=== PATIENT | male | born 1975 | race African-American/Black ===

== ENCOUNTER 2017-05-23 21:46 | Inpatient (IN) | payer SELFPAY ==
[~2017-05-23] VITALS: Ht 180.3 cm; Wt 120.2 kg
[2017-05-24] MEDS ORDERED: KETOROLAC 30MG/ML VIAL IV STA (00:41)
[2017-05-24] MEDS ORDERED: SODIUM CHLORIDE 0.9% 1,000 ML IV ONE ×3 (00:41→05:02)
[2017-05-24] MEDS ORDERED: ONDANSETRON HCL 4MG/2ML VIAL IV STA ×2 (00:41→02:07)
[2017-05-24 00:52] LABS: HEMATOCRIT. 44.6 % (42.0-52.0); HEMOGLOBIN. 15.3 g/dL (14.0-18.0); MEAN CORPUSCULAR HEMOGLOBIN 30.7 pg (28.0-32.0); MEAN CORPUSCULAR VOLUME 89.5 fL (80.0-94.0); MEAN PLATELET VOLUME 7.7 fl (7.4-10.4); PLATELET 239 x1000/uL (130-400); RED BLOOD CELL COUNT 4.98 mill/uL (4.7-6.1); RED CELL DISTRIBUTION WIDTH 13.7 % (11.6-14.6)
[2017-05-24 00:59] LABS: CHLORIDE 105 mEq/L (98-107)
[2017-05-24 01:00] LABS: INR 1.2; PROTHROMBIN TIME 12.5 sec
[2017-05-24 01:08] LABS: CARBON DIOXIDE 25 mEq/L (21-32)
[2017-05-24] MEDS ORDERED: MORPHINE SULFATE 4 MG/ML CPJ (NOT FOR IM USE) IV STA (02:07)
[2017-05-24 02:21] LABS: CLARITY URINE CLOUDY (CLEAR); COLOR URINE ORANGE (YELLOW); GLUCOSE URINE NEGATIVE (NEGATIVE); KETONES URINE NEGATIVE (NEGATIVE); LEUKOCYTE ESTERASE URINE 2+ (NEGATIVE); NITRITE URINE POSITIVE (NEGATIVE); OCCULT BLOOD URINE 3+ (NEGATIVE); PH URINE 5.5 (4.5-8.0); PROTEIN URINE 2+ (NEGATIVE); SPECIFIC GRAVITY URINE 1.042 (1.005-1.030)
[2017-05-24 02:38] LABS: *AMPHETAMINES SCREEN URINE NEGATIVE (NEGATIVE); *BARBITURATES SCREEN URINE NEGATIVE (NEGATIVE); *BENZODIAZEPINES SCREEN URINE NEGATIVE (NEGATIVE); *COCAINE SCREEN URINE PRESUMTIVE POSITIVE (NEGATIVE); CANNABINOID URINE SCREEN PRESUMTIVE POSITIVE (NEGATIVE); METHADONE URINE SCREEN NEGATIVE (NEGATIVE); OPIATES URINE SCREEN NEGATIVE (NEGATIVE); PHENCYCLIDINE URINE SCREEN NEGATIVE (NEGATIVE)
[2017-05-24] MEDS ORDERED: CEFTRIAXONE 1 G PREMIX 50 ML IV ONE (03:00)
[2017-05-24 03:40] LABS: ATYPICAL LYMPHOCYTES 1
[2017-05-24 03:41] LABS: PLATELET ESTIMATE NORMAL
[2017-05-24] MEDS ORDERED: DOCUSATE SODIUM 100MG CAPSULE PO PRN (06:00)
[2017-05-24] MEDS ORDERED: ENOXAPARIN 40MG/0.4ML SYR SUBCUT SCH (06:00)
[2017-05-24] MEDS ORDERED: DIPHENHYDRAMINE 50MG/ML VIAL IV PRN (06:00)
[2017-05-24] MEDS ORDERED: LORAZEPAM 2MG/ML CPJ IV PRN (06:00)
[2017-05-24] MEDS ORDERED: ONDANSETRON HCL 4MG/2ML VIAL IV PRN (06:00)
[2017-05-24] MEDS ORDERED: MAGNESIUM/ALUMINUM HYDROXIDE/SIMETHICONE 30ML UDC PO PRN (06:00)
[2017-05-24] MEDS ORDERED: ACETAMINOPHEN 325MG TABLET PO PRN (06:00)
[2017-05-24] MEDS ORDERED: IPRATROPIUM/ALBUTEROL 0.5-3(2.5)MG/3ML NEB INH PRN (06:00)
[2017-05-24] MEDS ORDERED: GUAIFENESIN 200MG/10ML SUGAR FREE UDC PO PRN (06:00)
[2017-05-24] MEDS ORDERED: NA PHOS,M-B/NA PHOS,DI-BA ENEMA 118ML PR PRN (06:00)
[2017-05-24] MEDS ORDERED: LEVOFLOXACIN 500MG PREMIX 100 ML IV SCH (06:30)
[2017-05-24 09:00] VITALS: BP_SYST 151; BP_SYST 157; BP_DIAS 98
[2017-05-24] MEDS: PANTOPRAZOLE SODIUM 40 MG/VIAL IV SCH (10:29)
[2017-05-24] MEDS: ENOXAPARIN 30MG/0.3ML SYR SUBCUT SCH ×2 (10:29→21:31)
[2017-05-24] MEDS: LISINOPRIL 20MG TABLET PO SCH ×2 (10:29→21:29)
[2017-05-24 12:00] VITALS: BP 160/105
[2017-05-24] MEDS: KETOROLAC 15MG/ML VIAL IV PRN ×2 (13:53→23:10)
[2017-05-24 16:00] VITALS: BP 168/110
[2017-05-24] MEDS: CLONIDINE 0.1MG TABLET PO PRN (17:20)
[2017-05-24 20:00] VITALS: BP 136/87
[2017-05-24] MEDS ORDERED: ZOLPIDEM TARTRATE 5MG TABLET PO PRN (21:00)
[2017-05-25] VITALS: BP 145/45
[2017-05-25 04:00] VITALS: BP 167/110
[2017-05-25] MEDS ORDERED: CEFTRIAXONE 1 G PREMIX 50 ML IV SCH (04:00)
[2017-05-25 08:00] VITALS: BP 158/104
[2017-05-25] MEDS: LEVOFLOXACIN 500MG PREMIX 100 ML IV SCH (09:28)
[2017-05-25] MEDS: PANTOPRAZOLE SODIUM 40 MG/VIAL IV SCH (09:28)
[2017-05-25] MEDS: LISINOPRIL 20MG TABLET PO SCH ×2 (09:29→20:55)
[2017-05-25] MEDS: ENOXAPARIN 30MG/0.3ML SYR SUBCUT SCH ×2 (09:32→20:47)
[2017-05-25 12:00] VITALS: BP 161/101
[2017-05-25] MEDS: CLONIDINE 0.1MG TABLET PO PRN (12:33)
[2017-05-25 16:00] VITALS: BP 170/108
[2017-05-25] MEDS: KETOROLAC 15MG/ML VIAL IV PRN (18:12)
[2017-05-25 20:00] VITALS: BP 188/133
[2017-05-26] VITALS: BP 166/97
[2017-05-26 04:00] VITALS: BP 147/96
[2017-05-26] MEDS ORDERED: CEFTRIAXONE 1 G PREMIX 50 ML IV SCH (05:00)
[2017-05-26 08:00] VITALS: BP 160/96
[2017-05-26] MEDS: LEVOFLOXACIN 500MG PREMIX 100 ML IV SCH (08:34)
[2017-05-26] MEDS: LISINOPRIL 20MG TABLET PO SCH (08:35)
[2017-05-26] MEDS: ENOXAPARIN 30MG/0.3ML SYR SUBCUT SCH (08:35)
[2017-05-26] MEDS ORDERED: FAMOTIDINE 20MG/2ML VIAL IV SCH (09:00)
[2017-05-26 12:00] VITALS: BP 169/105
[2017-05-26] MEDS: CLONIDINE 0.1MG TABLET PO PRN (12:12)
== END 2017-05-26 13:21 | disposition home or self-care (01) | DRG 463 ==
LOC: ER 21:47 → 6EST 05-24 04:54 → ENRESERV 05-24 07:15
PROVIDERS: ADMIT Internal Medicine; ATTEND Internal Medicine
DX: N10 Acute pyelonephritis (principal); E44.1 Mild protein-calorie malnutrition; F17.210 Nicotine dependence, cigarettes, uncomplicated; F12.90 Cannabis use, unspecified, uncomplicated; Z60.2 Problems related to living alone; J45.909 Unspecified asthma, uncomplicated; Z68.37 Body mass index [BMI] 37.0-37.9, adult; Z87.442 Personal history of urinary calculi; Z71.51 Drug abuse counseling and surveillance of drug abuser
CPT/HCPCS: 36415; 71010; 74176; 80053; 80305; 81001; 83036; 83605; 83690; 85025; 85610; 87040; 93005; 96361; 96365; 96375; 99285; C1893; C9113; J0696; J1650; J1885; J1956; J2270; J2405; J3490; J7030; J7040

== ENCOUNTER 2018-06-21 17:02 | Emergency (ER) | payer SELFPAY ==
[~2018-06-21] VITALS: Ht 177.8 cm; Wt 123.0 kg
[2018-06-21 19:41] LABS: CHLORIDE 102 mEq/L (98-107)
[2018-06-21 19:42] LABS: BASOPHILS % 0.3 % (0.0-2.0); EOSINOPHILS % 2.3 % (0.0-5.0); HEMATOCRIT. 48.6 % (42.0-52.0); HEMOGLOBIN. 16.2 g/dL (14.0-18.0); LYMPHOCYTES % 16.2 % (20.0-50.0); MEAN CORPUSCULAR HEMOGLOBIN 30.6 pg (28.0-32.0); MEAN CORPUSCULAR VOLUME 91.9 fL (80.0-94.0); MEAN PLATELET VOLUME 8.5 fl (7.4-10.4); MONOCYTES % 5.4 % (2.0-8.0); NEUTROPHILS % 75.8 % (40.0-76.0); PLATELET 321 x1000/uL (130-400); RED BLOOD CELL COUNT 5.28 mill/uL (4.7-6.1); RED CELL DISTRIBUTION WIDTH 13.5 % (11.6-14.6)
[2018-06-21 19:45] LABS: ETHANOL BLOOD < 10 mg/dL
[2018-06-21 19:48] LABS: PROTHROMBIN TIME 10.4 sec (9.1-11.1)
[2018-06-21 22:06] VITALS: BP 159/97
== END 2018-06-21 22:05 | disposition home or self-care (01) ==
LOC: ER 20:47
DX: R10.9 Unspecified abdominal pain (principal); K59.00 Constipation, unspecified; J45.909 Unspecified asthma, uncomplicated; F17.200 Nicotine dependence, unspecified, uncomplicated
CPT/HCPCS: 36415; 74176; 80053; 83690; 85025; 85610; 99285; G0482

== ENCOUNTER 2019-12-22 18:19 | Inpatient (IN) | payer OTHER ==
[~2019-12-22] VITALS: Ht 177.8 cm; Wt 121.6 kg
[2019-12-22] MEDS ORDERED: ACETAMINOPHEN 325MG TABLET ONE (18:40)
[2019-12-22] MEDS ORDERED: SODIUM CHLORIDE 0.9% 1000ML BAG (SEPSIS BOLUS) IV ONE (21:30)
[2019-12-22 22:13] LABS: HEMATOCRIT. 47.3 % (42.0-52.0); HEMOGLOBIN. 15.8 g/dL (14.0-18.0); MEAN CORPUSCULAR HEMOGLOBIN 30.6 pg (28.0-32.0); MEAN CORPUSCULAR VOLUME 91.5 fL (80.0-94.0); MEAN PLATELET VOLUME 8.3 fl (7.4-10.4); PLATELET 299 x1000/uL (130-400); RED BLOOD CELL COUNT 5.17 mill/uL (4.7-6.1); RED CELL DISTRIBUTION WIDTH 13.6 % (11.6-14.6)
[2019-12-22 22:19] LABS: CHLORIDE 107 mEq/L (98-107)
[2019-12-22 22:29] LABS: PLATELET ESTIMATE NORMAL
[2019-12-22 22:56] LABS: CLARITY URINE CLEAR (CLEAR); COLOR URINE YELLOW (YELLOW); KETONES URINE TRACE (NEGATIVE); LEUKOCYTE ESTERASE URINE 2+ (NEGATIVE); NITRITE URINE NEGATIVE (NEGATIVE); OCCULT BLOOD URINE TRACE (NEGATIVE); PH URINE 5.5 (4.5-8.0); PROTEIN URINE 1+ (NEGATIVE); SPECIFIC GRAVITY URINE 1.026 (1.005-1.030)
[2019-12-22] MEDS ORDERED: CEFTRIAXONE 1 G PREMIX 50 ML IV ONE (23:45)
[2019-12-22] MEDS ORDERED: SODIUM CHLORIDE 0.9% 1,000 ML IV ONE (23:45)
[2019-12-22] MEDS ORDERED: OSELTAMIVIR 75MG CAPSULE PO ONE (23:45)
[2019-12-23] MEDS ORDERED: SODIUM CHLORIDE 0.9% 1,000 ML IV SCH (01:54)
[2019-12-23] MEDS ORDERED: ONDANSETRON HCL 4MG/2ML INJ IV PRN (02:00)
[2019-12-23] MEDS: CLONIDINE 0.1MG TABLET PO PRN ×2 (03:24→22:12)
[2019-12-23] MEDS: ACETAMINOPHEN 325MG TABLET PO PRN ×3 (03:24→22:09)
[2019-12-23] MEDS: HEPARIN 5000 UNITS/ML VIAL SUBCUT SCH ×2 (11:41→21:38)
[2019-12-23] MEDS: OSELTAMIVIR 75MG CAPSULE PO SCH ×2 (11:41→21:37)
[2019-12-23 18:46] VITALS: BP 189/91
[2019-12-23 20:00] VITALS: BP 165/94
[2019-12-24] VITALS: BP 152/89
[2019-12-24 04:00] VITALS: BP 156/90
[2019-12-24 07:31] LABS: CHLORIDE 111 mEq/L (98-107)
[2019-12-24] MEDS: ACETAMINOPHEN 325MG TABLET PO PRN (07:56)
[2019-12-24 08:00] VITALS: BP 152/98
[2019-12-24 08:06] LABS: HEMATOCRIT. 45.3 % (42.0-52.0); HEMOGLOBIN. 15.6 g/dL (14.0-18.0); MEAN CORPUSCULAR HEMOGLOBIN 31.8 pg (28.0-32.0); MEAN CORPUSCULAR VOLUME 92.6 fL (80.0-94.0); MEAN PLATELET VOLUME 8.8 fl (7.4-10.4); PLATELET 225 x1000/uL (130-400); RED CELL DISTRIBUTION WIDTH 13.7 % (11.6-14.6)
[2019-12-24] MEDS: HEPARIN 5000 UNITS/ML VIAL SUBCUT SCH (09:25)
[2019-12-24] MEDS: OSELTAMIVIR 75MG CAPSULE PO SCH (09:25)
[2019-12-24 11:43] LABS: PLATELET ESTIMATE NORMAL
[2019-12-24 12:00] VITALS: BP 161/102
[2019-12-24] MEDS ORDERED: CLON0.1T14 PO (12:48)
[2019-12-24] MEDS ORDERED: TAM75 PO (12:48)
[2019-12-24] MEDS: CLONIDINE 0.1MG TABLET PO PRN (13:17)
[2019-12-24 13:50] VITALS: BP 149/90
== END 2019-12-24 16:30 | disposition home or self-care (01) | DRG 872 ==
LOC: ER 18:19 → 5WST 12-23 01:53 → EDBEDREQTM 12-23 02:01 → EDBEDREQ 12-23 02:01 → ENRESERV 12-23 12:04
PROVIDERS: ADMIT Internal Medicine; ATTEND Internal Medicine
DX: A41.89 Other specified sepsis (principal); N39.0 Urinary tract infection, site not specified; I10 Essential (primary) hypertension; J10.1 Influenza due to other identified influenza virus with other respiratory manifestations; J45.909 Unspecified asthma, uncomplicated; Z87.442 Personal history of urinary calculi
CPT/HCPCS: 36415; 71045; 80053; 81003; 83605; 83735; 84484; 85025; 87804; 93005; 99291; J0696; J1644; J7030

== ENCOUNTER 2020-02-26 11:45 | Emergency (ER) | payer OTHER ==
[~2020-02-26] VITALS: Ht 180.3 cm; Wt 123.0 kg
[~2020-02-26 11:45] MED LIST: CLON0.1T14 PO; TAM75 PO
[2020-02-26 13:11] VITALS: BP 153/93
[2020-02-26 13:23] LABS: CHLORIDE 108 mEq/L (98-107)
[2020-02-26 13:25] LABS: BASOPHILS % 0.7 % (0.0-2.0); EOSINOPHILS % 1.1 % (0.0-5.0); HEMATOCRIT. 43.3 % (42.0-52.0); HEMOGLOBIN. 14.9 g/dL (14.0-18.0); LYMPHOCYTES % 11.5 % (20.0-50.0); MEAN PLATELET VOLUME 8.3 fl (7.4-10.4); MONOCYTES % 8.8 % (2.0-8.0); NEUTROPHILS % 77.9 % (40.0-76.0); PLATELET 294 x1000/uL (130-400); RED BLOOD CELL COUNT 4.66 mill/uL (4.7-6.1); RED CELL DISTRIBUTION WIDTH 14.6 % (11.6-14.6)
== END 2020-02-26 15:51 | disposition home or self-care (01) ==
LOC: ER 11:45
DX: R55 Syncope and collapse (principal); R42 Dizziness and giddiness; R00.2 Palpitations; J45.909 Unspecified asthma, uncomplicated; Z87.442 Personal history of urinary calculi; F17.200 Nicotine dependence, unspecified, uncomplicated
CPT/HCPCS: 36415; 71045; 80053; 83880; 84484; 85025; 93005; 99285

== ENCOUNTER 2021-02-07 21:19 | Inpatient (IN) | payer OTHER ==
[~2021-02-07] VITALS: Ht 182.9 cm; Wt 120.7 kg
[2021-02-07] MEDS ORDERED: MORPHINE SULFATE 4 MG/ML CPJ (NOT FOR IM USE) IV STA (22:46)
[2021-02-07] MEDS ORDERED: ONDANSETRON HCL 4MG/2ML INJ IV STA (22:46)
[2021-02-07 22:53] LABS: BASOPHILS % 0.5 % (0.0-2.0); EOSINOPHILS % 0.2 % (0.0-5.0); HEMATOCRIT. 45.6 % (42.0-52.0); HEMOGLOBIN. 15.3 g/dL (14.0-18.0); LYMPHOCYTES % 8.5 % (20.0-50.0); MEAN CORPUSCULAR HEMOGLOBIN 30.2 pg (28.0-32.0); MEAN PLATELET VOLUME 8.7 fl (7.4-10.4); MONOCYTES % 7.9 % (2.0-8.0); NEUTROPHILS % 82.9 % (40.0-76.0); PLATELET 347 x1000/uL (130-400); RED BLOOD CELL COUNT 5.06 mill/uL (4.7-6.1); RED CELL DISTRIBUTION WIDTH 13.5 % (11.6-14.6)
[2021-02-07 23:00] LABS: CHLORIDE 105 mEq/L (98-107)
[2021-02-07] MEDS ORDERED: SODIUM CHLORIDE 0.9% 1000ML BAG (SEPSIS BOLUS) IV ONE (23:00)
[2021-02-07 23:02] LABS: INR 1.1; PROTHROMBIN TIME 11.4 sec (9.6-11.0)
[2021-02-07 23:26] LABS: CLARITY URINE CLOUDY (CLEAR); COLOR URINE YELLOW (YELLOW); KETONES URINE TRACE (NEGATIVE); LEUKOCYTE ESTERASE URINE 3+ (NEGATIVE); NITRITE URINE NEGATIVE (NEGATIVE); OCCULT BLOOD URINE 1+ (NEGATIVE); PH URINE 6.5 (4.5-8.0); PROTEIN URINE 1+ (NEGATIVE); SPECIFIC GRAVITY URINE 1.022 (1.005-1.030)
[2021-02-07] MEDS ORDERED: AZITHROMYCIN 500 MG in DEXT 5% WATER 250 ML IV ONE (23:30)
[2021-02-07] MEDS ORDERED: CEFTRIAXONE 1 G PREMIX 50 ML IV ONE (23:30)
[2021-02-08 03:00] VITALS: BP_SYST 123; BP_DIAS 63; BP_DIAS 68
[2021-02-08] MEDS ORDERED: MORPHINE SULFATE 2 MG/ML CPJ (NOT FOR IM USE) IV PRN (03:00)
[2021-02-08] MEDS ORDERED: ONDANSETRON HCL 4MG/2ML INJ IV PRN (03:00)
[2021-02-08] MEDS ORDERED: ACETAMINOPHEN 325MG TABLET PO PRN (03:00)
[2021-02-08 08:00] VITALS: BP 126/75
[2021-02-08] MEDS: METOPROLOL TARTRATE 50MG TABLET PO SCH ×2 (08:23→22:46)
[2021-02-08] MEDS: ENOXAPARIN 30MG/0.3ML SYR SUBCUT SCH ×2 (08:24→22:45)
[2021-02-08] MEDS ORDERED: CEFTRIAXONE 1 G PREMIX 50 ML IV SCH (09:30)
[2021-02-08 10:32] LABS: BASOPHILS % 0.5 % (0.0-2.0); EOSINOPHILS % 0.4 % (0.0-5.0); HEMATOCRIT. 42.5 % (42.0-52.0); HEMOGLOBIN. 14.2 g/dL (14.0-18.0); LYMPHOCYTES % 7.7 % (20.0-50.0); MEAN CORPUSCULAR HEMOGLOBIN 30.4 pg (28.0-32.0); MEAN CORPUSCULAR VOLUME 90.8 fL (80.0-94.0); MEAN PLATELET VOLUME 8.2 fl (7.4-10.4); NEUTROPHILS % 83.4 % (40.0-76.0); PLATELET 305 x1000/uL (130-400); RED BLOOD CELL COUNT 4.68 mill/uL (4.7-6.1); RED CELL DISTRIBUTION WIDTH 13.3 % (11.6-14.6)
[2021-02-08 10:37] LABS: CHLORIDE 103 mEq/L (98-107)
[2021-02-08 12:00] VITALS: BP 115/53
[2021-02-08] MEDS: CEFTRIAXONE 1,000 MG in DEXTROSE 5% WATER 50 ML IV SCH (12:32)
[2021-02-08] MEDS ORDERED: POTASSIUM CHLORIDE 20MEQ TABLET SR PO SCH (13:45)
[2021-02-08 16:00] VITALS: BP 135/83
[2021-02-08 20:35] VITALS: BP 130/71
[2021-02-08] MEDS: HYDROCODONE/ACETAMINOPHEN 5/325MG TABLET PO PRN (22:46)
[2021-02-09 00:06] VITALS: BP 112/70
[2021-02-09 04:00] VITALS: BP 170/98
[2021-02-09] MEDS ORDERED: CLONIDINE 0.1MG TABLET PO PRN (05:15)
[2021-02-09] MEDS: HYDROCODONE/ACETAMINOPHEN 5/325MG TABLET PO PRN (06:23)
[2021-02-09] MEDS: METOPROLOL TARTRATE 50MG TABLET PO SCH (09:19)
[2021-02-09] MEDS: ENOXAPARIN 30MG/0.3ML SYR SUBCUT SCH (09:19)
[2021-02-09 10:55] LABS: BASOPHILS % 0.7 % (0.0-2.0); EOSINOPHILS % 0.7 % (0.0-5.0); HEMATOCRIT. 44.5 % (42.0-52.0); HEMOGLOBIN. 14.9 g/dL (14.0-18.0); LYMPHOCYTES % 12.5 % (20.0-50.0); MEAN CORPUSCULAR HEMOGLOBIN 30.4 pg (28.0-32.0); MEAN CORPUSCULAR VOLUME 90.6 fL (80.0-94.0); MEAN PLATELET VOLUME 8.4 fl (7.4-10.4); MONOCYTES % 10.7 % (2.0-8.0); NEUTROPHILS % 75.4 % (40.0-76.0); PLATELET 319 x1000/uL (130-400); RED BLOOD CELL COUNT 4.92 mill/uL (4.7-6.1); RED CELL DISTRIBUTION WIDTH 13.3 % (11.6-14.6)
[2021-02-09 11:12] LABS: CHLORIDE 102 mEq/L (98-107)
[2021-02-09] MEDS: CEFTRIAXONE 1,000 MG in DEXTROSE 5% WATER 50 ML IV SCH (12:10)
[2021-02-09] MEDS ORDERED: LEVO500T89 MT (14:56)
[2021-02-09 16:15] VITALS: BP 115/63
== END 2021-02-09 16:55 | disposition home or self-care (01) | DRG 871 ==
LOC: ER 21:19 → 7WST 02-08 01:24 → ENRESERV 02-08 01:52 → 8WST 02-09 08:23
PROVIDERS: ADMIT Internal Medicine; ATTEND Internal Medicine
DX: A41.9 Sepsis, unspecified organism (principal); J18.9 Pneumonia, unspecified organism; N10 Acute pyelonephritis; E66.9 Obesity, unspecified; I10 Essential (primary) hypertension; J45.909 Unspecified asthma, uncomplicated; Z20.822 Contact with and (suspected) exposure to COVID-19; Z87.440 Personal history of urinary (tract) infections; Z87.442 Personal history of urinary calculi; Z88.8 Allergy status to other drugs, medicaments and biological substances; Z68.36 Body mass index [BMI] 36.0-36.9, adult
CPT/HCPCS: 36415; 71045; 74176; 80048; 80053; 81003; 83605; 83880; 84145; 84484; 85025; 87077; 87186; 93005; 99285; J0456; J0696; J1650; J2270; J2405; J7030; J7060; U0003

== ENCOUNTER 2021-04-28 19:24 | Emergency (ER) | payer OTHER ==
[~2021-04-28] VITALS: Ht 177.8 cm; Wt 120.0 kg
[~2021-04-28 19:24] MED LIST changes: +LEVO500T89 MT; -TAM75 PO
[2021-04-28] MEDS ORDERED: NITROGLYCERIN 0.4MG TABLET SL SL PRN (19:45)
[2021-04-28] MEDS ORDERED: ASPIRIN 81MG TABLET PO ONE (19:45)
[2021-04-28 20:19] LABS: BASOPHILS % 0.8 % (0.0-2.0); HEMATOCRIT. 41.7 % (42.0-52.0); HEMOGLOBIN. 14.2 g/dL (14.0-18.0); LYMPHOCYTES % 26.6 % (20.0-50.0); MEAN CORPUSCULAR HEMOGLOBIN 31.3 pg (28.0-32.0); MEAN CORPUSCULAR VOLUME 91.9 fL (80.0-94.0); MEAN PLATELET VOLUME 7.9 fl (7.4-10.4); MONOCYTES % 8.5 % (2.0-8.0); NEUTROPHILS % 62.1 % (40.0-76.0); PLATELET 336 x1000/uL (130-400); RED BLOOD CELL COUNT 4.54 mill/uL (4.7-6.1); RED CELL DISTRIBUTION WIDTH 14.2 % (11.6-14.6)
[2021-04-28 20:27] LABS: CHLORIDE 113 mEq/L (98-107)
[2021-04-28 20:34] LABS: ETHANOL BLOOD < 10 mg/dL
[2021-04-28 21:20] LABS: *BARBITURATES SCREEN URINE NEGATIVE (NEGATIVE); *BENZODIAZEPINES SCREEN URINE NEGATIVE (NEGATIVE); *COCAINE SCREEN URINE NEGATIVE (NEGATIVE); METHADONE URINE SCREEN NEGATIVE (NEGATIVE); OPIATES URINE SCREEN NEGATIVE (NEGATIVE)
[2021-04-28 21:22] LABS: *AMPHETAMINES SCREEN URINE NEGATIVE (NEGATIVE); CANNABINOID URINE SCREEN PRESUMTIVE POSITIVE (NEGATIVE); PHENCYCLIDINE URINE SCREEN NEGATIVE (NEGATIVE)
[2021-04-28] MEDS ORDERED: ASPI-1497 MT (23:26)
[2021-04-29] VITALS: BP 109/79
== END 2021-04-29 00:26 | disposition home or self-care (01) ==
LOC: ER 19:24
DX: R07.9 Chest pain, unspecified (principal); I10 Essential (primary) hypertension; F17.210 Nicotine dependence, cigarettes, uncomplicated; Z79.82 Long term (current) use of aspirin; Z87.442 Personal history of urinary calculi; Z91.013 Allergy to seafood; Z98.890 Other specified postprocedural states
CPT/HCPCS: 36415; 71045; 80053; 80305; 80320; 83690; 83880; 84484; 85025; 85379; 93005; 99285; Z7610; G0480